=== PATIENT | male | born 1985 | race African-American/Black ===

== ENCOUNTER 2019-04-15 00:33 | Emergency (ER) | payer SELFPAY ==
[~2019-04-15] VITALS: Wt 75.0 kg
[2019-04-15] MEDS ORDERED: MUPI22OI2 TOP (02:18)
--- NOTE | 2019-04-15 02:21 | ERD ---
ER Documentation Chief Complaint Chief Complaint bib ra from home for lac, glass laceration HPI 33-year-old male presents for left hand laceration x1 day. He states that he was cleaning a glass cup and it fell towards the sink and before he can grab a glass cup shattered and the glass cut his hand. He states that he was bleeding. Admits to about 5 out of 10 pain on the palmar side, throbbing sensation. No other modifying factors noted, no treatment tried at home. Patient did get a tetanus shot about a year and a half ago. No significant past medical history otherwise. ROS All systems reviewed and are negative except as per history of present illness. Medications Home Meds Active Scripts Mupirocin* (Bactroban*) 2% -22 Gram Oint...g., 1 APPLIC TOP BID for laceration hand for 7 Days, #1 TUBE Prov:SEBLE LEIGH DO 04/15/19 Allergies Allergies: Uncoded Allergies: IBUPROFEN (Allergy, Unknown, 04/15/19) PMhx/Soc Medical and Surgical Hx: pt denies Medical Hx, pt denies Surgical Hx Hx Alcohol Use: Yes Hx Substance Use: No Hx Tobacco Use: No Smoking Status: Never smoker FmHx Family History: No coronary disease Physical Exam Vitals Vital Signs Date Temp Pulse Resp B/P (MAP) Pulse Ox O2 O2 Flow FiO2 Time Delivery Rate 04/15/19 98.9 79 19 141/91 100 00:35 (108) Physical Exam Const: No acute distress Resp: Clear to auscultation bilaterally Cardio: Regular rate and rhythm, no murmurs, cap refills less than 2 seconds in all fingers of the left hand Skin: Left hand palmar side laceration noted about 1 cm, no active bleeding, the laceration is superficial Back: No midline or flank tenderness Ext: No cyanosis, or edema Neur: Awake and alert, sensation intact in all fingers of the left hand Psych: Normal Mood and Affect Procedures/MDM Medical Decision Making: Patient presents with laceration over the left palmar side about 1 cm. Patient appeared well on physical exam. Evaluation of the laceration shows no active bleeding, the laceration was too superficial for repair. The wound was irrigated copiously with normal saline. Was dressed in the ER. Patient advised regarding wound care. Patient given prescription for Bactroban. Patient advised to follow up with PCP in 1-2 days. Patient advised to return to ED for new or worsening symptoms. Patient stable on discharge from the ED. Disclaimer: Inadvertent spelling and grammatical errors are likely due to EHR/dictation software use and do not reflect on the overall quality of patient care. Also, please note that the electronic time recorded on this note does not necessarily reflect the actual time of the patient encounter. Departure Diagnosis: Primary Impression: Laceration Condition: Fair Patient Instructions: Laceration, All Additional Instructions: Call your primary care doctor TOMORROW for an appointment during the next 1-2 days.See the doctor sooner or return here if your condition worsens before your appointment time. SEBLE LEIGH DO April 15, 2019 02:21
[2019-04-15 03:01] VITALS: BP 141/91; PULSE 82; RESP 19
== END 2019-04-15 03:01 | disposition home or self-care (01) ==
LOC: FTE 00:33
DX: S61.412A Laceration without foreign body of left hand, initial encounter (principal); W25.XXXA Contact with sharp glass, initial encounter; Y92.009 Unspecified place in unspecified non-institutional (private) residence as the place of occurrence of the external cause
CPT/HCPCS: 99283